=== PATIENT | female | born 1965 | race Caucasian/White ===

== ENCOUNTER → 2016-10-29 | Outpatient (CLI) | payer MEDICARE, MEDICAID ==
[~2016-10-29] MED LIST: ASPI-730 PO; BIOT800T PO; BREX2TAB PO; CALC600T12 PO; CHOL200026 PO; CIPR-280 PO; DOCU-175 PO; DULO60CA25 PO; FERR-70 PO; GADOBUTROL 10mMol/10ml INJECTION IV ONE; HYDR25TA PO; INSU100V20 SQ; INSU300I SQ; LOSA25TA34 PO; METR500T PO; MULT-933 PO; OMEP20CA81 PO; ROSU20TA11 PO; SALINE FLUSH 10ml SYRINGE ONE; TRAZ-170 PO
--- NOTE | 2016-10-29 16:45 | DI ---
Indication: ITS.REASON: LUMBAR RADICULOPATHY M54.16 LT NUMB, WEAKNESS PROCEDURE: MRI LUMBAR SPINE W/WO CONTRAST: Encounter: Initial Comparison: April 17, 2016 Technique: Multiplanar multisequence MR imaging of the lumbar spine was performed with and without contrast. Contrast: 10 mL Gadavist Findings: Interval surgery with posterior decompression extending from L3 through L5. Vertebral body heights are unchanged. No acute fracture seen. Subcutaneous fluid collection at the operative site measuring 11.7 cm craniocaudally and 3 cm in thickness. Conus medullaris terminates normally at L1. The paraspinal soft tissues are otherwise unremarkable. Segmental analysis: L1-L2: Normal L2-L3: Normal L3-L4: Posterior decompression with mild bulge. There is continued lateral recess narrowing with moderate right and mild left neural foraminal stenosis. This is similar to the comparison. L4-L5: Posterior decompression with a central disk protrusion. Mild degenerative facet disease with severe bony right neural foraminal stenosis. Moderate left neural foraminal stenosis. This is unchanged. L5-S1: Small central disk protrusion. Posterior decompression. Mild bilateral neural foraminal stenosis is similar to the prior. There is some epidural enhancement at the operative levels, a common finding in the early postoperative period. No evidence of a rim-enhancing abscess. Some edema and enhancement within the paraspinal musculature at the operative levels. Impression: Interval posterior decompression from L3 through L5. Stable multilevel neural foraminal stenosis. .
== END ==
LOC: IMA 13:55
PROVIDERS: ATTEND Neurological Surgery
DX: M51.16 Intervertebral disc disorders with radiculopathy, lumbar region (principal); M47.26 Other spondylosis with radiculopathy, lumbar region; M51.17 Intervertebral disc disorders with radiculopathy, lumbosacral region; Z98.890 Other specified postprocedural states; R20.2 Paresthesia of skin; M79.605 Pain in left leg
CPT/HCPCS: 72158; A9585

== ENCOUNTER → 2016-11-09 | Outpatient (CLI) | payer MEDICARE, MEDICAID ==
[~2016-11-09] MED LIST changes: -GADOBUTROL 10mMol/10ml INJECTION IV ONE; -SALINE FLUSH 10ml SYRINGE ONE
--- NOTE | 2016-11-09 12:49 | DI ---
EXAM: HIP RIGHT 2 VIEW LOCATION OF DICTATION: [facility] HISTORY: ITS.REASON: M79.604 PAIN IN RT LEG; R22.41 SWELLING; M25.551 PAIN IN RT HIP COMPARISON: No prior studies available for comparison. FINDINGS: There is moderate osteoarthrosis about the right hip joint with joint space narrowing and marginal osteophytes demonstrated. There is no evidence for acute fracture or malalignment. There is normal osseous mineralization. Impression: 1. Moderate osteoarthrosis about the right hip joint with prominent marginal osteophyte about the superior lateral acetabulum. This could result in femoral acetabular impingement and clinical correlation is recommended. 2. No malalignment or acute fracture. .
--- NOTE | 2016-11-09 13:01 | DI ---
EXAM: US VENOUS DUPLEX, LOWER EXT RT LOCATION OF DICTATION: [facility] HISTORY: ITS.REASON: M79.604 PAIN IN RT LEG; R22.41 SWELLING; M25.551 PAIN IN RT HIP COMPARISON: No prior studies available for comparison. TECHNIQUE: Multiple real-time grayscale sonographic images were obtained of the right lower extremities with color flow and spectral analysis. FINDINGS: The right common femoral, femoral, deep femoral, popliteal, posterior tibial, and peroneal veins are widely patent without filling defects. These vessels demonstrate normal response to augmentation and compression. There are no abnormal fluid collections within the surrounding soft tissues. IMPRESSION: No evidence for right lower extremity deep venous thrombosis. .
[2016-11-09 13:09] LABS: BASOPHILS % (AUTO) 0.5 % (0-2); EOSINOPHILS # (AUTO) 0.3 T/MM3 (0-0.5); EOSINOPHILS % (AUTO) 2.9 % (0-4); HCT - HEMATOCRIT 39.4 % (36-46); HGB - HEMOGLOBIN 12.5 GM/DL (12-16); IMMATURE GRANULOCYTE # (AUTO) 0.02 T/MM3 (0.00-0.03); IMMATURE GRANULOCYTE % (AUTO) 0.2 % (0.0-0.5); LYMPHOCYTES % (AUTO) 33.6 % (23-45); MEAN CORPUSCULAR HGB 26.9 UUG (26-34); MEAN CORPUSCULAR HGB CONC(MCHC 31.7 GM/DL (31-37); MEAN CORPUSCULAR VOLUME 84.9 UM3 (80-100); MEAN PLATELET VOLUME 10.3 UM3 (9.4-12.4); MONOCYTES # (AUTO) 0.5 T/MM3 (0-0.8); MONOCYTES % (AUTO) 5.9 % (0-9.0); NEUTROPHILS % (AUTO) 56.9 % (33-66); RED BLOOD COUNT 4.64 M/MM3 (4.00-5.20); WBC - WHITE BLOOD COUNT 8.8 T/MM3 (4.5-11.0)
[2016-11-09 13:16] LABS: INR 1.11 (0.76-1.04); PROTHROMBIN TIME 12.1 SEC (9.31-12.49); PTT 24.9 SEC (24-36)
[2016-11-09 13:18] LABS: ALBUMIN 4.1 G/DL (3.5-5.0); ALBUMIN/GLOBULIN RATIO 1.2 RATIO (1.1-2.2); ALKALINE PHOSPHATASE 99 U/L (38-126); ALT (SGPT) 26 U/L (9-52); ANION GAP 14 MEQ/L (5-15); AST (SGOT) 26 U/L (14-36); BUN/CREATININE RATIO 11 RATIO (6-26); CALCIUM 9.5 MG/DL (8.4-10.2); CHLORIDE 100 MEQ/L (98-107); CO2 - CARBON DIOXIDE 33 MEQ/L (22-30); CREATININE 0.7 MG/DL (0.7-1.2); GLOMERULAR FILTRATION RATE 88; GLUCOSE 113 MG/DL (65-110); SODIUM 147 MEQ/L (134-144); TOTAL PROTEIN 7.5 G/DL (6.3-8.2)
[2016-11-09 14:15] LABS: C-REACTIVE PROTEIN 28.7 MG/L (0-9)
== END ==
LOC: IMA 12:15
PROVIDERS: ATTEND Internal Medicine
DX: M16.11 Unilateral primary osteoarthritis, right hip (principal); R22.41 Localized swelling, mass and lump, right lower limb; M25.551 Pain in right hip; M79.604 Pain in right leg
CPT/HCPCS: 36415; 80053; 85025; 85610; 85730; 86140; 87486; 87581; 87633; 87798